=== PATIENT | female | born 1960 | race Caucasian/White ===

== ENCOUNTER → 2016-04-11 | Outpatient (REF) | payer BC ==
[2016-04-11 16:40] LABS: ALBUMIN 3.8 GM/DL (3.2-5.2); ALBUMIN/GLOBULIN RATIO 1.09 (1.00-1.93); ALKALINE PHOSPHATASE 78 U/L (45-117); ALT/SGPT 17 U/L (12-78); ANION GAP 10 MEQ/L (8-16); AST/SGOT 9 U/L (15-37); BILIRUBIN,TOTAL 0.3 MG/DL (0.2-1.0); BLOOD UREA NITROGEN 14 MG/DL (7-18); CALCIUM LEVEL 9.5 MG/DL (8.5-10.1); CARBON DIOXIDE LEVEL 26 MEQ/L (21-32); CHLORIDE LEVEL 105 MEQ/L (98-107); CHOLESTEROL LEVEL 234 MG/DL (<200); GLOMERULAR FILTRATION RATE > 60.0 (>51); GLUCOSE, FASTING 112 MG/DL (70-105); POTASSIUM SERUM 4.4 MEQ/L (3.5-5.1); SODIUM LEVEL 141 MEQ/L (136-145); TOTAL PROTEIN 7.3 GM/DL (6.4-8.2); TRIGLYCERIDES LEVEL 167 MG/DL (<150)
== END ==
LOC: M SFHCPLAZ 08:02
DX: R82.90 Unspecified abnormal findings in urine (principal); E11.9 Type 2 diabetes mellitus without complications

== ENCOUNTER → 2016-05-09 | Outpatient (REF) | payer BC | LOC: M LABDRAW1 11:40 | PROVIDERS: ATTEND Student in an Organized Health Care Education/Training Program | DX: Z01.818 Encounter for other preprocedural examination (principal) ==

== ENCOUNTER → 2016-05-12 | Outpatient (REF) | payer BC ==
[2016-05-12 13:09] LABS: INR 0.97
[2016-05-12 13:14] LABS: BASO # 0.1 K/mm3 (0.0-0.2); BASO % 0.8 % (0.0-1.0); EOS # 0.2 K/mm3 (0.0-0.50); EOS % 1.7 % (0.0-3.0); LARGE UNSTAINED CELL # 0.3 K/mm3 (0.0-0.4); LARGE UNSTAINED CELL % 2.6 % (0.0-4.0); LYMPH # 3.6 K/mm3 (1.5-4.5); LYMPH % 37.1 % (24.0-44.0); MEAN CORPUSCULAR HEMOGLOBIN 27.4 pg (27.0-33.0); MEAN CORPUSCULAR HGB CONC 31.3 g/dl (32.0-36.5); MEAN CORPUSCULAR VOLUME 87.4 fl (80.0-96.0); MONO # 0.6 K/mm3 (0.0-0.8); MONO % 6.7 % (0.0-5.0); NEUTROPHILS # 4.9 K/mm3 (1.8-7.7); PLATELET COUNT, AUTOMATED 303 k/mm3 (150-450); RED CELL DISTRIBUTION WIDTH 12.5 % (11.5-14.5); WHITE BLOOD COUNT 9.6 K/mm3 (4.0-10.0)
== END ==
LOC: M SFHCPLAZ 10:22
PROVIDERS: ATTEND Student in an Organized Health Care Education/Training Program
DX: Z01.818 Encounter for other preprocedural examination (principal); N39.0 Urinary tract infection, site not specified

== ENCOUNTER → 2016-07-14 | Outpatient (REF) | payer BC ==
[2016-07-14 12:36] LABS: FREE T4 1.01 NG/DL (0.76-1.46)
== END ==
LOC: M SFHCPLAZ 10:38
PROVIDERS: ATTEND Family Medicine
DX: E03.9 Hypothyroidism, unspecified (principal)

== ENCOUNTER → 2016-07-24 | Outpatient (REF) | payer BC | LOC: M SFHCWAGY 08:28 | PROVIDERS: ATTEND Nurse Practitioner Women's Health | DX: Z12.4 Encounter for screening for malignant neoplasm of cervix (principal) ==

== ENCOUNTER → 2016-07-24 | Outpatient (CLI) | payer BC ==
--- NOTE | 2016-07-24 09:51 | REPMRS ---
Patient History No known family history of cancer. Benign stereotatic breast biopsy of the right breast, July 2012. Digital Woman Screen Mammo: July 24, 2016 - Exam #: [id number] Bilateral CC and MLO view(s) were taken. Technologist: Umm Puga, Technologist Prior study comparison: January 23, 2014, digital woman screen mammo performed at [facility]. February 12, 2013, right breast digital mammo diagnostic unilateral, performed at [facility]. FINDINGS: There are scattered fibroglandular densities. There has been no change in the appearance of the mammogram from the prior studies. There is a mild amount of residual fibroglandular tissue which is fairly symmetric. There is no interval development of dominant mass, architectural distortion, or clustered microcalcification suggestive of malignancy. ASSESSMENT: BI-RADS/ACR category 1 mammogram. Negative. Recommendation Routine screening mammogram in 1 year (for women over age 40). This mammogram was interpreted with the aid of an FDA-approved computer-aided dectection system. Electronically Signed By: Sreekanth Petit MD 07/24/16 0951
== END ==
LOC: M WHC 07:56
PROVIDERS: ATTEND Nurse Practitioner Women's Health
DX: Z12.31 Encounter for screening mammogram for malignant neoplasm of breast (principal)

== ENCOUNTER → 2016-08-21 | Outpatient (CLI) | payer BC ==
--- NOTE | 2016-08-21 11:55 | REP ---
Clinical: Pain. Technique: AP, lateral, bilateral oblique and sunrise views of the right knee. Findings: Mild to early moderate arthritic degenerative changes include marginal osteophytes and cortical irregularities as well as medial joint space narrowing. Lateral and sunrise views demonstrates subtle spurring along the superior and lateral margin of the patella. No acute fracture dislocation. No effusion. 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 Signed by Son Shahid MD 08/21/2016 11:45 A
== END ==
LOC: M RAD 11:12
PROVIDERS: ATTEND Family Medicine
DX: M25.561 Pain in right knee (principal); M17.11 Unilateral primary osteoarthritis, right knee

== ENCOUNTER → 2017-01-15 | Outpatient (REF) | payer BC | LOC: M SFHCPLAZ 10:48 | DX: E11.9 Type 2 diabetes mellitus without complications (principal) ==

== ENCOUNTER → 2017-05-11 | Outpatient (CLI) | payer BC | LOC: M WHC 14:20 | DX: N95.0 Postmenopausal bleeding (principal); N88.8 Other specified noninflammatory disorders of cervix uteri ==

== ENCOUNTER → 2017-05-15 | Outpatient (REF) | payer BC | LOC: M SFHCWAGY 11:58 | DX: N95.0 Postmenopausal bleeding (principal) | CPT/HCPCS: 88304 ==

== ENCOUNTER → 2018-01-11 | Outpatient (REF) | payer BC ==
[2018-01-11 12:19] LABS: BASO # 0.1 10^3/uL (0.0-0.2); BASO % 1.1 % (0.0-1.0); EOS # 0.2 10^3/uL (0.0-0.50); EOS % 1.9 % (0.0-3.0); HEMATOCRIT 40.9 % (36.0-47.0); HEMOGLOBIN 13.1 g/dl (12.0-15.5); IMMATURE GRANULOCYTE % 0.5 % (0-3.0); LYMPH # 3.4 10^3/uL (1.5-4.5); LYMPH % 38.5 % (24.0-44.0); MEAN CORPUSCULAR HEMOGLOBIN 27.8 pg (27.0-33.0); MEAN CORPUSCULAR VOLUME 86.8 fl (80.0-96.0); MONO # 0.7 10^3/uL (0.0-0.8); MONO % 8.4 % (0.0-5.0); NEUTROPHILS # 4.4 10^3/uL (1.8-7.7); NEUTROPHILS % 49.6 % (36.0-66.0); PLATELET COUNT, AUTOMATED 333 10^3/uL (150-450); RED BLOOD COUNT 4.71 10^6/uL (4.00-5.40); RED CELL DISTRIBUTION WIDTH 13.3 % (11.5-14.5); WHITE BLOOD COUNT 8.8 10^3/uL (4.0-10.0)
[2018-01-11 12:35] LABS: ESTIMATED AVERAGE GLUCOSE 169 MG/DL (60-110); HEMOGLOBIN A1c 7.5 %
[2018-01-11 12:46] LABS: ALBUMIN 4.1 GM/DL (3.2-5.2); ALBUMIN/GLOBULIN RATIO 1.24 (1.00-1.93); ALKALINE PHOSPHATASE 96 U/L (45-117); ALT/SGPT 28 U/L (12-78); ANION GAP 7 MEQ/L (8-16); AST/SGOT 17 U/L (7-37); BILIRUBIN,TOTAL 0.4 MG/DL (0.2-1.0); BLOOD UREA NITROGEN 15 MG/DL (7-18); CALCIUM LEVEL 9.7 MG/DL (8.5-10.1); CARBON DIOXIDE LEVEL 31 MEQ/L (21-32); CHLORIDE LEVEL 105 MEQ/L (98-107); CHOLESTEROL LEVEL 152 MG/DL (<200); CHOLESTEROL RISK RATIO 3.619 (<5); CREATININE FOR GFR 0.91 MG/DL (0.55-1.30); FREE T4 0.98 NG/DL (0.76-1.46); GLOMERULAR FILTRATION RATE > 60.0 (>51); GLUCOSE, FASTING 141 MG/DL (70-100); HDL CHOLESTEROL 42 MG/DL (>40); LDL CHOLESTEROL 81 MG/DL (<100); NON-HDL-C 110 MG/DL; POTASSIUM SERUM 4.4 MEQ/L (3.5-5.1); SODIUM LEVEL 143 MEQ/L (136-145); TOTAL PROTEIN 7.4 GM/DL (6.4-8.2); TRIGLYCERIDES LEVEL 144 MG/DL (<150)
== END ==
LOC: M SFHCPLAZ 09:09
DX: Z00.00 Encounter for general adult medical examination without abnormal findings (principal); E11.9 Type 2 diabetes mellitus without complications; E03.9 Hypothyroidism, unspecified
CPT/HCPCS: 84443

== ENCOUNTER → 2018-05-31 | Outpatient (REF) | payer BC ==
[2018-05-31 20:03] LABS: HEMOGLOBIN A1c 7.4 %
== END ==
LOC: M SFHCADAM 16:31
PROVIDERS: ATTEND Family Medicine
DX: E11.9 Type 2 diabetes mellitus without complications (principal)

== ENCOUNTER → 2018-09-20 | Outpatient (REF) | payer BC ==
[2018-09-20 20:05] LABS: CREATININE, URINE 14.4 MG/DL; MALB URINE SIEMENS < 5.0 MG/L; MAU/CREAT RATIO 34.7 MCG/MG (0.0-30.0)
[2018-09-20 20:21] LABS: HEMOGLOBIN A1c 7.4 %
== END ==
LOC: M SFHCADAM 17:03
PROVIDERS: ATTEND Family Medicine
DX: E11.9 Type 2 diabetes mellitus without complications (principal)

== ENCOUNTER → 2018-11-15 | Outpatient (CLI) | payer BC ==
--- NOTE | 2018-11-15 10:19 | REP ---
REASON FOR EXAM: Post menopausal bleeding. COMPARISON: 05/11/2017 The prior exam was within normal limits. Transvesical and transvaginal imaging was obtained. The uterus measures 8.3 x 4.3 x 4.4 cm. The parenchymal echo pattern is within normal limits and essentially unchanged. The endometrial echo complex measures 5 mm in thickness and ultrasonographically appears to be within normal limits. There is no free fluid in the endometrial cavity or cervical canal. Incidental note is again made of nabothian cysts. Both ovaries are normal. The right measures 1.3 x 1.1 x 1.3 cm and the left measures 1.2 x 1 x 1.2 cm. Urinary bladder measures 9 x 5 x 7 cm. IMPRESSION: Pelvic ultrasonography is within normal limits. Electronically Signed by Abel Langston DO 11/15/2018 02:12 P
--- NOTE | 2018-11-15 14:11 | REPMRS ---
Patient History The patient states she had a clinical breast exam in . No known family history of cancer. Benign stereotatic breast biopsy of the right breast, July 2012. Taking unspecified hormones for 6 years. Digital Mammo Screening Bilat: November 15, 2018 - Exam #: [id number] Bilateral CC and MLO view(s) were taken. Technologist: Sheri Moreno, Technologist Prior study comparison: July 24, 2016, digital woman screen mammo, performed at [facility]. January 23, 2014, digital woman screen mammo, performed at [facility] [place]. February 12, 2013, right breast digital mammo diagnostic unilateral, performed at [facility]. August 02, 2012, left breast diagnostic unilateral mammo, performed at [facility]. FINDINGS: There are scattered fibroglandular densities. There is a stable nodule in the left breast unchanged from multiple prior studies. There has been no change in the appearance of the mammogram from the prior studies. There is a mild amount of scattered fibroglandular density which is fairly symmetric. There is no interval development of dominant mass, architectural distortion, or grouped microcalcification suggestive of malignancy. 3-D tomosynthesis shows no additional findings. Assessment: BI-RADS/ACR category 2 mammogram. Benign Findings. Recommendation Routine screening mammogram of both breasts in 1 year (for women over age 40). This patient's Lifetime Breast Cancer Risk is estimated at 7.4 %. This mammogram was interpreted with the aid of an FDA-approved computer-aided dectection system. Electronically Signed By: Teja Mayer MD 11/15/18 0959
== END ==
LOC: M RAD 08:09
DX: Z12.31 Encounter for screening mammogram for malignant neoplasm of breast (principal); R93.89 Abnormal findings on diagnostic imaging of other specified body structures; N63.20 Unspecified lump in the left breast, unspecified quadrant

== ENCOUNTER → 2018-12-10 | Outpatient (REF) | payer BC ==
[2018-12-10 19:57] LABS: ESTRADIOL < 19.0 PG/ML; FOLLICLE STIMULATING HORMONE 35.7 mIU/mL
== END ==
LOC: M LABDRWAD 19:08
PROVIDERS: ATTEND Obstetrics & Gynecology
DX: N95.0 Postmenopausal bleeding (principal); R93.89 Abnormal findings on diagnostic imaging of other specified body structures

== ENCOUNTER → 2019-05-02 | Outpatient (CLI) | payer BC ==
[2019-05-02 19:01] LABS: HEMOGLOBIN A1c 6.7 %
== END ==
LOC: M PLALAB 08:42
PROVIDERS: ATTEND Family Medicine
DX: E11.9 Type 2 diabetes mellitus without complications (principal)

== ENCOUNTER → 2019-06-20 | Outpatient (CLI) | payer BC ==
--- NOTE | 2019-06-20 16:46 | REP ---
Clinical: Left shoulder pain. Technique: Internal rotation, external rotation, and Y view of the left shoulder. Findings: Subtle cortical irregularity at the acromioclavicular joint is appreciated along with small calcification in the posterolateral joint space overlying the humeral tuberosity. The subacromial space is normal. The glenoid rim is normal. No acute fracture or dislocation. Impression: Mild arthritic degenerative changes including small focus of suspected calcific tendinopathy. Electronically Signed by Son Shahid MD 06/20/2019 04:37 P
== END ==
LOC: M ADAMS 16:28
PROVIDERS: ATTEND Family Medicine
DX: M25.512 Pain in left shoulder (principal); M19.012 Primary osteoarthritis, left shoulder; M75.32 Calcific tendinitis of left shoulder

== ENCOUNTER → 2019-11-10 | Outpatient (CLI) | payer BC | LOC: M LABSMTC 09:30 | PROVIDERS: ATTEND Pediatrics | DX: Z11.59 Encounter for screening for other viral diseases (principal) | CPT/HCPCS: C9803; U0002 ==

== ENCOUNTER → 2020-02-19 | Outpatient (REF) | payer BC | LOC: M SFHCWAGY 13:04 | PROVIDERS: ATTEND Nurse Practitioner Women's Health | DX: Z12.4 Encounter for screening for malignant neoplasm of cervix (principal) | CPT/HCPCS: 87624; G0123 ==

== ENCOUNTER → 2020-02-19 | Outpatient (CLI) | payer BC ==
[2020-02-19 11:50] LABS: BASO # 0.1 10^3/uL (0.0-0.2); BASO % 1.4 % (0.0-1.0); EOS # 0.4 10^3/uL (0.0-0.5); EOS % 3.9 % (0.0-3.0); HEMATOCRIT 44.1 % (36.0-47.0); HEMOGLOBIN 13.8 g/dl (12.0-15.5); LYMPH # 2.8 10^3/uL (1.5-5.0); LYMPH % 29.9 % (24.0-44.0); MEAN CORPUSCULAR HEMOGLOBIN 27.1 pg (27.0-33.0); MEAN CORPUSCULAR HGB CONC 31.3 g/dl (32.0-36.5); MEAN CORPUSCULAR VOLUME 86.6 fl (80.0-96.0); MONO # 1.1 10^3/uL (0.0-0.8); NEUTROPHILS # 4.9 10^3/uL (1.5-8.5); NEUTROPHILS % 52.5 % (36.0-66.0); PLATELET COUNT, AUTOMATED 352 10^3/uL (150-450); RED BLOOD COUNT 5.09 10^6/uL (4.00-5.40); WHITE BLOOD COUNT 9.4 10^3/uL (4.0-10.0)
[2020-02-19 12:26] LABS: ALBUMIN 3.8 GM/DL (3.2-5.2); ALT/SGPT 23 U/L (12-78); BILIRUBIN,TOTAL 0.4 MG/DL (0.2-1.0); BLOOD UREA NITROGEN 20 MG/DL (7-18); CARBON DIOXIDE LEVEL 29 MEQ/L (21-32); CHLORIDE LEVEL 103 MEQ/L (98-107); CREATININE FOR GFR 0.99 MG/DL (0.55-1.30); GLOMERULAR FILTRATION RATE > 60.0 (>51); GLUCOSE, FASTING 124 MG/DL (70-100); POTASSIUM SERUM 4.9 MEQ/L (3.5-5.1); SODIUM LEVEL 139 MEQ/L (136-145); TOTAL PROTEIN 7.7 GM/DL (6.4-8.2)
[2020-02-19 13:06] LABS: HEMOGLOBIN A1c 6.9 %
== END ==
LOC: M PLALAB 09:27
PROVIDERS: ATTEND Family Medicine
DX: E03.9 Hypothyroidism, unspecified (principal); I10 Essential (primary) hypertension; E11.8 Type 2 diabetes mellitus with unspecified complications

== ENCOUNTER → 2020-02-19 | Outpatient (CLI) | payer BC ==
--- NOTE | 2020-02-19 09:32 | REPMRS ---
Patient History The patient states she had a clinical breast exam in 02/2020. Patient is postmenopausal. No known family history of cancer. Benign stereotatic breast biopsy of the right breast, July 2012. No Hormone Replacement Therapy 3D TOMOSYNTHESIS WAS PERFORMED. [facility] Volpara breast density a. Digital Woman Screen Mammo: February 19, 2020 - Exam #: [id number] Bilateral CC and MLO view(s) were taken. Technologist: Rosenda Aranda, Technologist Prior study comparison: November 15, 2018, bilateral digital mammo screening bilat, performed at [facility]. July 24, 2016, digital woman screen mammo performed at [facility]. FINDINGS: There are scattered fibroglandular densities. There has been no change in the appearance of the mammogram from the prior studies. There is a mild amount of residual fibroglandular tissue which is fairly symmetric. There is no interval development of dominant mass, architectural distortion, or clustered microcalcification suggestive of malignancy. Assessment: BI-RADS/ACR category 1 mammogram. Negative Mammogram. Recommendation Routine screening mammogram in 1 year (for women over age 40). This mammogram was interpreted with the aid of an FDA-approved computer-aided dectection system. Electronically Signed By: Sreekanth Petit MD 02/19/20 0931
== END ==
LOC: M WHC 08:11
PROVIDERS: ATTEND Nurse Practitioner Women's Health
DX: Z12.31 Encounter for screening mammogram for malignant neoplasm of breast (principal); Z86.018 Personal history of other benign neoplasm

== ENCOUNTER → 2020-05-24 | Outpatient (REF) | LOC: M LABSMTC 10:42 | PROVIDERS: ATTEND Pediatrics | DX: Z20.822 Contact with and (suspected) exposure to COVID-19 (principal) ==

== ENCOUNTER → 2020-05-27 | Outpatient (REF) | LOC: M LABSMTC 11:09 | PROVIDERS: ATTEND Pediatrics | DX: Z11.52 Encounter for screening for COVID-19 (principal) ==

== ENCOUNTER → 2020-06-04 | Outpatient (REF) | payer BC ==
[2020-06-04 18:01] LABS: BASO # 0.1 10^3/uL (0.0-0.2); BASO % 1.3 % (0.0-1.0); EOS # 0.5 10^3/uL (0.0-0.5); EOS % 4.8 % (0.0-3.0); HEMATOCRIT 40.6 % (36.0-47.0); HEMOGLOBIN 12.7 g/dl (12.0-15.5); LYMPH # 3.1 10^3/uL (1.5-5.0); LYMPH % 30.5 % (24.0-44.0); MEAN CORPUSCULAR HEMOGLOBIN 27.1 pg (27.0-33.0); MEAN CORPUSCULAR HGB CONC 31.3 g/dl (32.0-36.5); MEAN CORPUSCULAR VOLUME 86.8 fl (80.0-96.0); MONO # 1.3 10^3/uL (0.0-0.8); MONO % 12.4 % (2.0-8.0); NEUTROPHILS # 5.2 10^3/uL (1.5-8.5); NEUTROPHILS % 50.6 % (36.0-66.0); PLATELET COUNT, AUTOMATED 372 10^3/uL (150-450); RED BLOOD COUNT 4.68 10^6/uL (4.00-5.40); WHITE BLOOD COUNT 10.2 10^3/uL (4.0-10.0)
[2020-06-04 18:33] LABS: ALBUMIN 3.5 GM/DL (3.2-5.2); ALT/SGPT 33 U/L (12-78); BILIRUBIN,TOTAL 0.3 MG/DL (0.2-1.0); BLOOD UREA NITROGEN 13 MG/DL (7-18); CALCIUM LEVEL 9.8 MG/DL (8.5-10.1); CARBON DIOXIDE LEVEL 30 MEQ/L (21-32); CHLORIDE LEVEL 105 MEQ/L (98-107); CHOLESTEROL LEVEL 158 MG/DL (<200); CREATININE FOR GFR 0.84 MG/DL (0.55-1.30); FREE T4 0.95 NG/DL (0.76-1.46); GLOMERULAR FILTRATION RATE > 60.0 (>51); GLUCOSE, FASTING 118 MG/DL (70-100); HDL CHOLESTEROL 50 MG/DL (>40); LDL CHOLESTEROL 80 MG/DL (<100); NON-HDL-C 108 MG/DL; POTASSIUM SERUM 4.6 MEQ/L (3.5-5.1); SODIUM LEVEL 139 MEQ/L (136-145); TOTAL PROTEIN 7.5 GM/DL (6.4-8.2); TRIGLYCERIDES LEVEL 142 MG/DL (<150)
[2020-06-04 19:15] LABS: HEPATITIS A ANTIBODY IGM NEGATIVE (NEGATIVE); HEPATITIS B CORE ANTIBODY IGM NEGATIVE (NEGATIVE); HEPATITIS B SURFACE ANTIGEN NEGATIVE (NEGATIVE); HEPATITIS C VIRUS ABY INDEX < 0.0 INDEX (<0.8)
== END ==
LOC: M SFHCADAM 15:37
PROVIDERS: ATTEND Family Medicine
DX: E78.2 Mixed hyperlipidemia (principal); E11.9 Type 2 diabetes mellitus without complications; I10 Essential (primary) hypertension; E03.9 Hypothyroidism, unspecified; L43.9 Lichen planus, unspecified

== ENCOUNTER → 2020-11-05 | Outpatient (REF) | payer BC ==
[2020-11-05 16:05] LABS: CREATININE, URINE 19.8 MG/DL; MALB URINE SIEMENS < 5.0 MG/L; MAU/CREAT RATIO 25.2 MCG/MG (0.0-30.0)
== END ==
LOC: M SFHCADAM 08:59
PROVIDERS: ATTEND Family Medicine
DX: E11.9 Type 2 diabetes mellitus without complications (principal)

== ENCOUNTER → 2021-02-04 | Outpatient (REF) | payer BC ==
[2021-02-04 13:13] LABS: ALBUMIN 3.6 GM/DL (3.2-5.2); ALT/SGPT 38 U/L (12-78); BILIRUBIN,TOTAL 0.4 MG/DL (0.2-1.0); BLOOD UREA NITROGEN 15 MG/DL (7-18); CALCIUM LEVEL 10.2 MG/DL (8.5-10.1); CARBON DIOXIDE LEVEL 31 MEQ/L (21-32); CHLORIDE LEVEL 105 MEQ/L (98-107); CREATININE FOR GFR 0.84 MG/DL (0.55-1.30); GLOMERULAR FILTRATION RATE > 60.0 (>51); GLUCOSE, FASTING 145 MG/DL (70-100); POTASSIUM SERUM 4.6 MEQ/L (3.5-5.1); SODIUM LEVEL 139 MEQ/L (136-145); TOTAL PROTEIN 7.6 GM/DL (6.4-8.2)
[2021-02-04 13:55] LABS: HEMOGLOBIN A1c 7.5 %
== END ==
LOC: M SFHCADAM 09:02
PROVIDERS: ATTEND Family Medicine
DX: E11.9 Type 2 diabetes mellitus without complications (principal)

== ENCOUNTER → 2021-02-22 | Outpatient (CLI) | payer BC ==
--- NOTE | 2021-02-22 10:56 | REPMRS ---
Patient History The patient states she had a clinical breast exam in January 2021. No known family history of cancer. Benign stereotatic breast biopsy of the right breast, July 2012. No Hormone Replacement Therapy Tomosynthesis is performed. Volpara breast density is b. [facility] lifetime risk of breast cancer 8.2%. Patient states no breast complaints today. Patient has signed MRS History Sheet. Digital Woman Screen Mammo: February 22, 2021 - Exam #: [id number] Bilateral CC and MLO view(s) were taken. Technologist: Haley Baugh, Technologist Prior study comparison: February 19, 2020, bilateral digital woman screen mammo performed at [facility]. November 15, 2018, bilateral digital mammo screening bilat, performed at [facility]. FINDINGS: There are scattered fibroglandular densities. There has been no change in the appearance of the mammogram from the prior studies. There is a mild amount of residual fibroglandular tissue which is fairly symmetric. There is no interval development of dominant mass, architectural distortion, or clustered microcalcification suggestive of malignancy. Assessment: BI-RADS/ACR category 1 mammogram. Negative Mammogram. Recommendation Routine screening mammogram in 1 year (for women over age 40). This mammogram was interpreted with the aid of an FDA-approved computer-aided dectection system. Electronically Signed By: Sreekanth Petit MD 02/22/21 [id number]
== END ==
LOC: M WHC 09:53
PROVIDERS: ATTEND Nurse Practitioner Women's Health
DX: Z12.31 Encounter for screening mammogram for malignant neoplasm of breast (principal)

== ENCOUNTER → 2021-07-26 | Outpatient (REF) | payer BC ==
[2021-07-26 12:55] LABS: ALT/SGPT 36 U/L (12-78); BILIRUBIN,TOTAL 0.5 MG/DL (0.2-1.0); BLOOD UREA NITROGEN 10 MG/DL (7-18); CALCIUM LEVEL 10.6 MG/DL (8.8-10.2); CARBON DIOXIDE LEVEL 26 MEQ/L (21-32); CHLORIDE LEVEL 107 MEQ/L (98-107); CREATININE FOR GFR 0.87 MG/DL (0.55-1.30); GLOMERULAR FILTRATION RATE > 60.0 (>45); GLUCOSE, FASTING 132 MG/DL (70-100); POTASSIUM SERUM 4.4 MEQ/L (3.5-5.1); SODIUM LEVEL 141 MEQ/L (136-145); TOTAL PROTEIN 7.4 GM/DL (6.4-8.2)
[2021-07-26 13:27] LABS: HEMOGLOBIN A1c 7.3 %
== END ==
LOC: M SFHCADAM 09:25
PROVIDERS: ATTEND Family Medicine
DX: E11.9 Type 2 diabetes mellitus without complications (principal)

== ENCOUNTER → 2022-01-27 | Outpatient (REF) | payer BC ==
[2022-01-27 13:58] LABS: ALBUMIN 3.9 GM/DL (3.2-5.2); ALT/SGPT 33 U/L (12-78); BILIRUBIN,TOTAL 0.6 MG/DL (0.2-1.0); BLOOD UREA NITROGEN 14 MG/DL (7-18); CALCIUM LEVEL 9.9 MG/DL (8.8-10.2); CARBON DIOXIDE LEVEL 29 MEQ/L (21-32); CHLORIDE LEVEL 106 MEQ/L (98-107); CREATININE FOR GFR 0.93 MG/DL (0.55-1.30); GLOMERULAR FILTRATION RATE > 60.0 (>45); GLUCOSE, FASTING 135 MG/DL (70-100); POTASSIUM SERUM 4.7 MEQ/L (3.5-5.1); SODIUM LEVEL 140 MEQ/L (136-145); TOTAL PROTEIN 7.4 GM/DL (6.4-8.2)
[2022-01-27 14:22] LABS: HEMOGLOBIN A1c 6.6 %
== END ==
LOC: M SFHCADAM 10:16
PROVIDERS: ATTEND Family Medicine
DX: E11.9 Type 2 diabetes mellitus without complications (principal)

== ENCOUNTER → 2022-01-30 | Outpatient (REF) | payer BC ==
[2022-01-30 13:59] LABS: HEMOGLOBIN A1c 6.7 %
[2022-01-30 14:06] LABS: ALBUMIN 3.9 GM/DL (3.2-5.2); ALT/SGPT 41 U/L (12-78); BILIRUBIN,TOTAL 0.5 MG/DL (0.2-1.0); BLOOD UREA NITROGEN 12 MG/DL (7-18); CALCIUM LEVEL 10.2 MG/DL (8.8-10.2); CARBON DIOXIDE LEVEL 29 MEQ/L (21-32); CHLORIDE LEVEL 105 MEQ/L (98-107); CHOLESTEROL LEVEL 243 MG/DL (<200); CHOLESTEROL RISK RATIO 5.522 (<5); CREATININE FOR GFR 0.88 MG/DL (0.55-1.30); GLOMERULAR FILTRATION RATE > 60.0 (>45); GLUCOSE, FASTING 135 MG/DL (70-100); HDL CHOLESTEROL 44 MG/DL (>40); LDL CHOLESTEROL 160 MG/DL (<100); NON-HDL-C 199 MG/DL; POTASSIUM SERUM 4.6 MEQ/L (3.5-5.1); RHEUMATOID FACTOR QUANT < 10.0 IU/ML (<15.0); SODIUM LEVEL 137 MEQ/L (136-145); TOTAL PROTEIN 7.9 GM/DL (6.4-8.2); TRIGLYCERIDES LEVEL 193 MG/DL (<150); URIC ACID 5.8 MG/DL (2.6-6.0)
[2022-01-30 14:20] LABS: CREATININE, URINE 31.4 MG/DL; MALB URINE SIEMENS < 5.0 MG/L; MAU/CREAT RATIO 15.9 MCG/MG (0.0-30.0)
[2022-01-31 21:08] LABS: ANA (HEP2) Negative (.)
== END ==
LOC: M SFHCADAM 10:30
PROVIDERS: ATTEND Family Medicine
DX: M25.50 Pain in unspecified joint (principal); E11.9 Type 2 diabetes mellitus without complications